=== PATIENT | male | born 2000 | race African-American/Black ===

== ENCOUNTER 2022-08-20 14:53 | Emergency (ER) | payer BC, SELFPAY ==
[2022-08-20 15:31] VITALS: BP 124/68; PULSE 57; RESP 18; TEMP 36.6; O2SAT 100
[2022-08-20 15:48] LABS: Basophils Percent Auto 0.8 % (0.2-1.2); Eosinophils Absolute Auto 0.1 K/mm3 (0-0.3); Eosinophils Percent Auto 1.8 % (0-4.4); Hematocrit 43.6 % (42.0-52.0); Hemoglobin 14.6 g/dL (14.0-18.0); Immature Granulocyte Absolute 0.01 K/mm3 (0.00-0.031); Immature Granulocyte Percent A 0.2 % (0-0.5); Lymphocytes Absolute Auto 2.32 K/mm3 (0.9-3.2); Lymphocytes Percent Auto 46.7 % (18.3-44.2); Mean Corpuscular HGB Conc 33.5 g/dl (32-36); Mean Corpuscular Volume 92.6 fl (80-100); Mean Platelet Volume 9.9 fl (7.4-10.4); Monocytes Absolute Auto 0.4 K/mm3 (0.1-0.6); Monocytes Percent Auto 8.2 % (2.6-8.5); Neutrophils Absolute Auto 2.1 K/mm3 (1.3-6.7); Neutrophils Percent Auto 42.3 % (45.5-73.1); Platelet Count Result 248 k/mm3 (150-375); Red Blood Count 4.71 M/mm3 (4.6-6.20); Red Cell Distribution Width 11.8 % (11.5-14.5)
[2022-08-20 15:57] LABS: Alanine Aminotransferase 36 U/L (6-50); Albumin Level 4.4 g/dL (3.5-5.1); Alkaline Phosphatase 87 U/L (38-126); Anion Gap 12 mmol/L (8-16); Aspartate Amino Transferase 31 U/L (17-59); Bilirubin,Total 0.3 mg/dL (0.2-1.3); Blood Urea Nitrogen 18 mg/dL (9-20); Calcium 8.9 mg/dL (8.4-10.2); Carbon Dioxide 27 mmol/L (22-30); Chloride 102 mmol/L (98-107); Estimated CRCL calculation 83 ml/min; Estimated Glomerular Filt Rate > 60; Glucose 112 mg/dL (65-110); Potassium 3.7 mmol/L (3.4-5.0); Sodium 141 mmol/L (137-145)
[2022-08-20 15:59] LABS: INR 1.1; Prothrombin Time 13.8 Seconds (11.1-14.7)
[2022-08-20 16:00] LABS: Partial Thromboplastin Time 31.1 SECONDS (22.3-36.8)
--- NOTE | 2022-08-20 20:22 | PC.NURSE ---
Pt seen by Dr. Sánchez in ED Triage 2 as no ED rooms currently available.
--- NOTE | 2022-08-20 20:38 | ED.GIBLEED ---
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 Related Data Allergies Allergy/AdvReac Type Severity Reaction Status Date / Time No Known Allergies Allergy Verified 08/20/22 15:35 Review of Systems Review of Systems: RESP: No shortness of breath GI: No abdominal pain; some BRBPR on wiping NEURO: No lightheadedness PSYCH: Scared about cancer PMFSH Past Medical History Medical History (Updated 08/21/22 @ 01:13 by Brandie Sánchez MD) No significant active problems Exam Narrative: EXAMINATION OF ORGAN SYSTEMS/BODY AREAS: Constitutional: Vital signs per nursing GENERAL:[No acute distress, non-toxic appearing.] HEAD: Normal with no signs of head trauma. EYES: EOMI, conjunctiva normal ENT: Hearing grossly intact LUNGS: Nonlabored breathing. HEART: [Regular rate and rhythm] ABD: [Soft], [nontender to palpation] RECTAL: No external hemorrhoids; some mild discomfort on rectal exam with grossly brown stool that is hemoccult positive, no significant fluctuance or tenderness EXT: Normal range of motion SKIN: [No rashes or lesions.] NEURO: [Alert and oriented x 3. No gross focal sensory or strength deficits.] PSYCH: Normal affect Course Vital Signs Vital signs: Vital Signs Temperature 98 F 08/20/22 15:31 Pulse Rate 57 L 08/20/22 15:31 Respiratory Rate 18 08/20/22 15:31 Blood Pressure 124/68 08/20/22 15:31 Pulse Oximetry 100 08/20/22 15:31 Oxygen Delivery Room Air 08/20/22 15:31 Temperature 98 F 08/20/22 15:31 Pulse Rate 57 L 08/20/22 15:31 Respiratory Rate 18 08/20/22 15:31 Blood Pressure 124/68 08/20/22 15:31 Pulse Oximetry 100 08/20/22 15:31 Oxygen Delivery Room Air 08/20/22 15:31 MDM - GI Bleed MDM Narrative Medical decision making narrative: 22-year-old male presenting with several weeks of constipation and some rectal discomfort and bright red blood when he wipes. VSS, patient well appearing with nontender abdomen, rectal exam showing some mild discomfort but no severe tenderness or lesions or concern for abscess; faintly hemoccult +. Given his age, history and exam, I suspect symptoms are most likely from possible anal fissures from constipation or possibly hemorrhoids, I have very low concern for cancer given his age and no risk factors, and very low concern for infection as he is not sexually active with other men and cannot see any lesions and he has no fevers or chills, nor any significant tenderness or fluctuance. He is counseled on diet changes, and following up with gastroenterology once he returns home. Return precautions provided and he is stable to discharge home with stool softeners. Lab Data Result diagrams: 08/20/22 15:42 08/20/22 15:42 Labs: Lab Results 08/20/22 08/20/22 08/20/22 Range/Units 15:42 15:42 15:42 WBC 5.0 (4.5-10.0) K/mm3 RBC 4.71 (4.6-6.20) M/mm3 Hgb 14.6 (14.0-18.0) g/dL Hct 43.6 (42.0-52.0) % MCV 92.6 (80-100) fl MCH 31.0 (26-34) pg MCHC 33.5 (32-36) g/dl RDW 11.8 (11.5-14.5) % Plt Count 248 (150-375) k/mm3 MPV 9.9 (7.4-10.4) fl Immature Gran % (Auto) 0.2 (0-0.5) % Neut % (Auto) 42.3 L (45.5-73.1) % Lymph % (Auto) 46.7 H (18.3-44.2) % Pickett % (Auto) 8.2 (2.6-8.5) % Eos % (Auto) 1.8 (0-4.4) % Baso % (Auto) 0.8 (0.2-1.2) % Lymph # (Auto) 2.32 (0.9-3.2) K/mm3 Pickett # (Auto) 0.4 (0.1-0.6) K/mm3 Eos # (Auto) 0.1 (0-0.3) K/mm3 Baso # (Auto) 0.0 (0.0-0.1) K/mm3 Abs
== END 2022-08-20 20:37 | disposition home or self-care (01) ==
PROVIDERS: Emergency Medicine; Emergency Provider Emergency Medicine
DX: K60.2 Anal fissure, unspecified (principal); K59.00 Constipation, unspecified
CPT/HCPCS: 36415; 80053; 85025; 85610; 85730; 86850; 86900; 86901; 99283